=== PATIENT | female | born 1995 | race Caucasian/White ===

== ENCOUNTER 2023-02-11 19:28 | Emergency (ER) | payer SELFPAY ==
[~2023-02-11] VITALS: Ht 162.6 cm; Wt 55.0 kg
[~2023-02-11 19:28] MED LIST: MULTCAP45 PO
[2023-02-11 20:02] LABS: Basophils # (auto) 0 10 ^3/uL (0-0.2); Basophils % (auto) 0.3 % (0.0-2.0); Eosinophils # (auto) 0 10 ^3/uL (0-0.8); Hematocrit 36.4 % (36.0-46.0); Hemoglobin 12.4 g/dL (12.2-16.2); Lymphocytes # (auto) 1.3 10 ^3/uL (0.4-5.4); Lymphocytes % (auto) 10.9 % (10.0-50.0); Mean Corpuscular Hemoglobin 29.7 pg (28.0-32.0); Mean Corpuscular Hgb Conc. 33.9 g/dL (32.0-36.0); Mean Corpuscular Volume 87.4 fL (80.0-100.0); Monocytes # (auto) 0.5 10 ^3/uL (0-1.3); Monocytes % (auto) 4.2 % (0.0-12.0); Neutrophils % (auto) 84.6 % (37.0-80.0); Nucleated Red Blood Cells % 0.1 %; Red Blood Cells 4.16 10^6/uL (4.0-5.20); Red Cell Distribution Width 13.4 % (11.8-14.3); White Blood Cell 11.8 10^3/uL (4.4-10.8)
[2023-02-11] MEDS ORDERED: SODIUM CHLORIDE 0.9% 1,000 ML IV ONE (20:30)
[2023-02-11] MEDS ORDERED: LORazepam 2MG/ML-1ML VIAL IV ONE ×2 (20:30→23:45)
[2023-02-11 20:35] LABS: Albumin 3.5 g/dL (3.4-5.0); Calcium 8.1 mg/dL (8.5-10.1)
[2023-02-11 20:37] LABS: Acetaminophen < 2.0 ug/mL (10-30); Salicylate < 1.7 mg/dL (2.8-20.0)
[2023-02-11 20:38] LABS: BUN/Creatinine Ratio 19.7 (10.0-20.0); Bilirubin, Total 0.3 mg/dL (0.2-1.0); Total Protein 6.5 g/dL (6.4-8.2)
[2023-02-11] MEDS ORDERED: POTASSIUM EFFERVESENT TAB 25 MEQ PO ONE (23:00)
[2023-02-11] MEDS ORDERED: LACTATED RINGER'S 1,000 ML IV ONE (23:00)
[2023-02-12 02:00] VITALS: BP 115/78
[2023-02-12] MEDS ORDERED: ALPRAZolam 0.5 MG TAB PO ONE (02:00)
== END 2023-02-12 02:19 | disposition home or self-care (01) ==
LOC: EDBD 19:28 → EDUNIT# 19:28 → ER 19:28
DX: F11.23 Opioid dependence with withdrawal (principal); F41.9 Anxiety disorder, unspecified; E87.6 Hypokalemia; F12.10 Cannabis abuse, uncomplicated; F15.10 Other stimulant abuse, uncomplicated; R10.2 Pelvic and perineal pain
CPT/HCPCS: 36415; 80053; 80329; 84702; 85025; 93005; 96361; 96374; 96376; 99285; J2060; J7030

== ENCOUNTER 2025-04-21 15:08 | Emergency (ER) | payer OTHER ==
[~2025-04-21] VITALS: Ht 154.9 cm; Wt 57.0 kg
[2025-04-21 15:13] VITALS: BP 115/65; PULSE 105; RESP 16; TEMP 99; O2SAT 100
--- NOTE | 2025-04-21 15:33 | ED.PDOC ---
Back pain HPI HPI Comments 29-year-old female presents to the ER with a prior MHx of asthma: surgical history of left knee surgery and the chief complaint of body pain. Patient reports on having generalized swelling for one week after going to her detox center. Patient notes on having left arm soreness with chest pain the other night . LMP 03/20/2025. Chief Complaint: Body Pain Time Seen by MD: 15:30 Primary Care Provider: NONE Reviewed Notes: Nurses Notes, Medications, Allergies Allergies: Coded Allergies: NO KNOWN ALLERGIES (Unverified , 06/16/14) Home Meds Reported Medications Multiple Vitamin (Multivitamins) Cap, 1 CAP PO DAILY, #30 CAP 3 Refills 06/18/14 Information Source: Patient Mode of Arrival: Ambulatory Timing: Days Duration: Since onset Severity: Moderate Prehospital treatment: None Quality: Aching Onset: Spontaneous History of: None Associated signs and symptoms: None Past Medical History PAST MEDICAL HISTORY: Asthma Surgical History (Other): Left knee surgery FISHER HOOP NET History: No Pertinent FISHER HOOP NET History Family History Family History: Reviewed,noncontributory to illness, Unknown Social History Smoker: Unknown Alcohol: Unknown Drugs: Unknown Lives In: Home Constitutional: reports: others (Look at HPI); denies: chills, diaphoresis, fatigue, fever, malaise, sweats, weakness EENTM: denies: blurred vision, double vision, ear bleeding, ear discharge, ear drainage, ear pain, ear ringing, eye pain, eye redness, hearing loss, mouth pain, mouth swelling, nasal discharge, nose bleeding, nose congestion, nose pain, photophobia, tearing, throat pain, throat swelling, voice changes, others Respiratory: denies: cough, hemoptysis, orthopnea, SOB at rest, shortness of breath, SOB with excertion, stridor, wheezing, others Cardiovascular: denies: chest pain, dizzy spells, diaphoresis, Dyspnea on exertion, edema, irregular heart beat, left arm pain, lightheadedness, palpitations, PND, syncope, others Gastrointestinal: denies: abdomen distended, abdominal pain, blood streaked bowels, constipated, diarrhea, dysphagia, difficulty swallowing, hematemesis, melena, nausea, poor appetite, poor fluid intake, rectal bleeding, rectal pain, vomiting, others Genitourinary: denies: abnormal vagina bleeding, burning, dyspareunia, dysuria, flank pain, frequency, hematuria, incontinence, pain, , vagina discharge, urgency, others Neurological: denies: dizziness, fainting, headache, left sided numbness, left sided weakness, numbness, paresthesia, pre-existing deficit, right sided numbness, right sided weakness, seizure, speech problems, tingling, tremors, weakness, others Musculoskeletal: denies: back pain, gout, joint pain, joint swelling, muscle pain, muscle stiffness, neck pain, others Integumetry: denies: bruises, change in color, change in hair/nails, dryness, laceration, lesions, lumps, rash, wounds, others Allergic/Immunocompromised: denies: Difficulty Healing, Frequent Infections, Hives, Itching, others Hematologic/Lymphatic: denies: anemia, blood clots, easy bleeding, easy bruising, swollen glands, others Endocrine: denies: excessive hunger, excessive sweating, excessive thirst, excessive urination, flushing, intolerance to cold, intolerance to heat, une xplained weight gain, unexplained weight loss, others Psychiatric: denies: anxiety, bipolar disorder, depression, hopeless, panic disorder, schizophrenia, sleepless, suicidal, others All Other Systems: Reviewed and Negative Physical Exam General Appearance: No Apparent Distress, Normal HEENT: Normal ENT Inspection, Pharynx Normal, TMs Normal Neck: Full Range of Motion, Non-Tender, Normal, Normal Inspection Respiratory: Chest Non-Tender, Lungs Clear, No Accessory Muscle Use, No Respiratory Distress, Normal Breath Sounds Cardiovascular: No Edema, No JVD, No Murmur, No Gallop, Normal Peripheral Pul ses, Regular Rate/Rhythm Breast Exam: Deferred Gastrointestinal: No Organomegaly, Non Tender, No Pulsatile Mass, Normal Bowel Sounds, Soft Genitalia: Deferred Pelvic: Deferred Rectal: Deferred Extremities: No calf tenderness, Normal capillary refill, Normal inspection, Normal range of motion, Non-tender, No pedal edema Musculoskeletal : Apperance: Normal Neurologic: Alert, 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 Was a procedure done?: No Back Pain Differential Dx Differential Diagnosis: Other X-Ray, Labs, Meds, VS Vital Signs Date Time Temp Pulse Resp B/P (MAP) Pulse Ox O2 Delivery O2 Flow Rate FiO2 04/21/25 15:13 99.0 105 16 115/65 (82) 100 99.0 Lab Test 04/21/25 15:45 Range/Units Urine Color Light-orange Yellow Urine Clarity Turbid H Clear Urine pH 8.0 5.0-9.0 Urine Specific [place] 1.021 1.001-1.035 Urine Protein Negative Negative Urine Ketones Negative Negative Urine Blood Negative Negative /uL Urine Nitrite Negative Negative Urine Bilirubin Negative Negative Urine Urobilinogen 3 H Negative mg/dL Urine Leukocyte Esterase Negative Negative /uL Urine RBC 3 0 - 4 /hpf Urine Microscopic WBC 11 H 0-5 /HPF Urine Squamous Epithelial Cells Many <5 /hpf Urine Bacteria Few H None Seen /hpf Urine Hyaline Casts Few 0 - 2 /lpf Urine Mucus Few None Seen Urine Glucose Normal Normal mg/dL Urine Test Negative Negative X-Ray, Labs, Meds, VS Comment 29-year-old female presents to the ER with a prior MHx of asthma: surgical history of left knee surgery and the chief complaint of body pain. Patient arrives alert and oriented, ABC's intact, afebrile, vital signs stable, saturating well in room air Peripheral IV insertion+ labs were ordered. CBC was ordered to exclude anemia, blood loss, or infection. CMP was ordered to exclude electrolyte abnormalities, renal failure, dehydration, hyperglycemia and/or liver enzyme abnormalities. CRP Sed rate Troponin Urinalysis was ordered to rule out UTI or hematuria. Diagnostic imaging ordered by me and results interpreted by radiology : Labs in the ED showed (pertinent+ and then pertinent-) Eloped from ER Time of 1ST Reevaluation: 16:00 Reevaluation 1ST: Unchanged Patient Education/Counseling: Diagnosis, Treatment, Prognosis Family Education/Counseling: No Family Present SEPSIS Sepsis Screen Vital Signs Date Time Temp Pulse Resp B/P (MAP) Pulse Ox O2 Delivery O2 Flow Rate FiO2 04/21/25 15:13 99.0 105 16 115/65 (82) 100 99.0 Departure 1 Departure Time of Disposition: 16:48 Impression: Primary Impression: Eloped from emergency department Disposition: 07 LEFT AWOL/ELOPED Condition: Other Critical Care Note Critical Care Time?: No Stability Stability form required: No Heart Score Heart Score: Heart Score Response (Comments) Value History N/A 0 EKG N/A 0 Age N/A 0 Risk Factors N/A 0 Troponin N/A 0 Total 0 I personally scribed for NARDA BECKWITH NP ([email or web address]) on 04/21/25 at 15:33. Electronically submitted by Jose D Rodriguez ([email or web address]). NARDA BECKWITH NP Apr 21, 2025 15:33
[2025-04-21 16:25] LABS: Urine Protein, UAD Negative (Negative)
== END 2025-04-21 16:49 | disposition left against medical advice (07) ==
LOC: ER 15:13
DX: R07.89 Other chest pain (principal); J45.909 Unspecified asthma, uncomplicated; Z98.890 Other specified postprocedural states
CPT/HCPCS: 81001; 81025

== ENCOUNTER 2025-04-21 17:34 | Emergency (ER) | payer OTHER ==
[~2025-04-21] VITALS: Ht 170.2 cm; Wt 59.0 kg
[2025-04-21 17:38] VITALS: BP 121/90; PULSE 122; RESP 16; TEMP 98.3; O2SAT 98
== END 2025-04-21 17:46 | disposition left against medical advice (07) ==
LOC: ER 17:34
DX: M79.18 Myalgia, other site (principal); Z53.21 Procedure and treatment not carried out due to patient leaving prior to being seen by health care provider

== ENCOUNTER 2025-05-28 08:36 | Emergency (ER) | payer OTHER ==
[~2025-05-28] VITALS: Ht 152.4 cm; Wt 49.9 kg
[2025-05-28 08:39] VITALS: BP 156/101; PULSE 121; RESP 18; TEMP 99.3; O2SAT 96
--- NOTE | 2025-05-28 09:01 | ED.PDOC ---
Psychiatric HPI Comments This is a 29 year old female presenting to the ED with chief complaint of hallucinations. Patient reports that she had accidentally left her tampon in during her period for about 4 days. Patient relays that 2 days ago she had taken it out, however, she started to experience auditory hallucinations, not recognizing the voice she is hearing. Patient states that she also feels generally off at this time. Patient denies any SI, HI, fever, chills, or visual hallucinations. Chief Complaint: Hallucinations Time Seen by MD: 08:58 Primary Care Provider: NONE Reviewed Notes: Nurses Notes, Medications, Allergies Information Source: Patient Mode of Arrival: Ambulatory Severity: Able to Care for Self, Able to Control Self Severity of Pain: None Severity of Mental Status: Moderate Severity of Symptoms: Moderate Timing: Days Duration: Since onset Prehospital treatment: None Presents with: Unclear Thinking History of: Depression, Anxiety, Bipolar, Substance Abuse Associated signs and symptoms: Hallucinations Past Medical History PAST MEDICAL HISTORY: Anxiety, Asthma, Depression Past Medical History (Other): Bipolar Surgical History (Other): Left knee surgery HAMMERER TAB History: No Pertinent HAMMERER TAB History Family History Family History: Reviewed,noncontributory to illness, Unknown Social History Smoker: Cigarettes Alcohol: Occasionally Drugs: Marijuana Lives In: Home Constitutional: denies: chills, diaphoresis, fatigue, fever, malaise, sweats, weakness, others EENTM: denies: blurred vision, double vision, ear bleeding, ear discharge, ear drainage, ear pain, ear ringing, eye pain, eye redness, hearing loss, mouth pain, mouth swelling, nasal discharge, nose bleeding, nose congestion, nose pain, photophobia, tearing, throat pain, throat swelling, voice changes, others Respiratory: denies: cough, hemoptysis, orthopnea, SOB at rest, shortness of breath, SOB with excertion, stridor, wheezing, others Cardiovascular: denies: chest pain, dizzy spells, diaphoresis, Dyspnea on exertion, edema, irregular heart beat, left arm pain, lightheadedness, palpitations, PND, syncope, others Gastrointestinal: denies: abdomen distended, abdominal pain, blood streaked bowels, constipated, diarrhea, dysphagia, difficulty swallowing, hematemesis, melena, nausea, poor appetite, poor fluid intake, rectal bleeding, rectal pain, vomiting, others Genitourinary: denies: abnormal vagina bleeding, burning, dyspareunia, dysuria, flank pain, frequency, hematuria, incontinence, pain, , vagina discharge, urgency, others Neurological: denies: dizziness, fainting, headache, left sided numbness, left sided weakness, numbness, paresthesia, pre-existing deficit, right sided numbness, right sided weakness, seizure, speech problems, tingling, tremors, weakness, others Musculoskeletal: denies: back pain, gout, joint pain, joint swelling, muscle pain, muscle stiffness, neck pain, others Integumetry: denies: bruises, change in color, change in hair/nails, dryness, laceration, lesions, lumps, rash, wounds, others Allergic/Immunocompromised: denies: Difficulty Healing, Frequent Infections, Hives, Itching, others Hematologic/Lymphatic: denies: anemia, blood clots, easy bleeding, easy bruising, swollen glands, others Endocrine: denies: excessive hunger, excessive sweating, excessive thirst, excessive urination, flushing, intolerance to cold, intolerance to heat, unexplained weight gain, unexplained weight loss, others Psychiatric: reports: others (Auditory hallucinations); denies: anxiety, bipolar disorder, depression, hopeless, panic disorder, schizophrenia, sleepless, suicidal All Other Systems: Reviewed and Negative Physical Exam General Appearance: No Apparent Distress HEENT: Normal ENT Inspection, Pharynx Normal, TMs Normal Neck: Full Range of Motion, Non-Tender, Normal, Normal Inspection Respiratory: Chest Non-Tender, Lungs Clear, No Accessory Muscle Use, No Respiratory Distress, Normal Breath Sounds Cardiovascular: No Edema, No JVD, No Murmur, No Gallop, Normal Peripheral Pulses, Regular Rate/Rhythm Breast Exam: Deferred Gastrointestinal: No Organomegaly, Non Tender, No Pulsatile Mass, Normal Bowel Sounds, Soft Genitalia: Deferred Pelvic: Deferred Rectal: Deferred Extremities: No calf tenderness, Normal capillary refill, Normal inspection, Normal range of motion, Non-tender, No pedal edema Musculoskeletal : Apperance: Normal Neurologic: Alert, aix architect II-XII nml as Tested, No Motor Deficits, No Sensory Deficits, Other (The patient has a flat affect) Cerebellar Function: Normal Reflexes: Normal Skin: Dry, Normal Color, Warm Lymphatic: No Adenopathy Was a procedure done? Was a procedure done?: No Psych Differential Dx Psych. Differential Dx: Bipolar Disorder, Panic Disorder, Sleepless, Suicidal X-Ray, Labs, Meds, VS Vital Signs Date Time Temp Pulse Resp B/P (MAP) Pulse Ox O2 Delivery O2 Flow Rate FiO2 05/28/25 08:39 99.3 121 18 156/101 96 99.3 Lab Test 05/28/25 09:11 Range/Units Plasma/Serum Blood Alcohol 3.5 <10 mg/dL The patient's alcohol level is 3.5 We did attempt to continue to interviewed this patient but it seems that she got very anxious and wanted out the emergency department's. The patient initially stated that she was going to sit in the smoking area but is now left the department's Time of 1ST Reevaluation: 10:07 Reevaluation 1ST: The patient has eloped fr Patient Education/Counseling: Diagnosis, Treatment, Prognosis Family Education/Counseling: No Family Present Departure 1 Departure Time of Disposition: 10:07 Impression: Primary Impression: Anxiety disorder Qualified Codes: F41.9 - Anxiety disorder, unspecified Additional Impression: Hallucination Disposition: LEFT AWOL/ELOPED Condition: Fair Critical Care Note Critical Care Time?: No Stability Stability form required: No Heart Score Heart Score: Heart Score Response (Comments) Value History N/A 0 EKG N/A 0 Age N/A 0 Risk Factors N/A 0 Troponin N/A 0 Total 0 I personally scribed for JUSTICE HERNANDEZ MD ([email or web address]) on 05/28/25 at 09:00. Electronically submitted by Yasmani Salgado ([email or web address]). I personally scribed for JUSTICE HERNANDEZ MD ([email or web address]) on 05/28/25 at 09:01. Electronically submitted by Yasmani Salgado ([email or web address]). JUSTICE HERNANDEZ MD May 28, 2025 09:00
== END 2025-05-28 13:46 | disposition left against medical advice (07) ==
LOC: ER 08:36
DX: F41.9 Anxiety disorder, unspecified (principal); R44.3 Hallucinations, unspecified; J45.909 Unspecified asthma, uncomplicated; F17.210 Nicotine dependence, cigarettes, uncomplicated; Z79.899 Other long term (current) drug therapy
CPT/HCPCS: 36415; 80320

== ENCOUNTER 2025-08-23 19:13 | Emergency (ER) | payer OTHER ==
[~2025-08-23] VITALS: Ht 154.9 cm; Wt 51.8 kg
--- NOTE | 2025-08-23 20:07 | ED.PDOC ---
Eye-HPI HPI Comments PT HAS C/O SORE THROAT, CONGESTION, COUGH, AND NAUSEA X2 DAYS. DENIES DIF FICULTY BREATHING, SHORTNESS OF BREATH, CHEST PAIN, NAUSEA, VOMITING, FEVER, CHILLS, ABDOMINAL PAIN. Chief Complaint: Flu like Time Seen by MD: 19:21 Primary Care Provider: NONE Reviewed Notes: Nurses Notes, Medications, Allergies Allergies: Coded Allergies: Codeine (Verified Allergy, Unknown, 08/23/25) Watermelon Flavoring Agent (non-scr (Verified Allergy, Unknown, 05/28/25) Home Meds Active Scripts Promethazine-Dm (Promethazine Dm 6.25-15 mg/5Ml) 1 Keeley Ekeley, 5 ML PO TID PRN for 7 Days, #100 ML Prov:PORFIRIO RUSSELL [facility] 08/23/25 Azithromycin (Azithromycin) 250 Mg Tab, 250 MG PO DAILY MDD 500 for 5 Days, #6 TAB 0 Refills 2 TABLETS ORALLY ON DAY ONE, THEN 1 TABLET ORALLY DAILY FOR 4 DAYS Prov:PORFIRIO RUSSELL [facility] 08/23/25 Albuterol Sulfate (VENTOLIN MDI) 90 Mcg Ih, 90 MCG IN Q6HP PRN for 14 Days, #1 INHALER Prov:PORFIRIO RUSSELL [facility] 08/23/25 Reported Medications Multiple Vitamin (Multivitamins) Cap, 1 CAP PO DAILY, #30 CAP 3 Refills 06/18/14 Information Source: Patient Mode of Arrival: Ambulatory Past Medical History PAST MEDICAL HISTORY: Anxiety, Asthma, Depression 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 Pertinent LEVEL VIAL GRINDER History Family History Family History: Reviewed,noncontributory to illness, Unknown Social History Smoker: Cigarettes Alcohol: Occasionally Drugs: Marijuana Lives In: Home All Other Systems: Reviewed and Negative (see hpi) Physical Exam General Appearance: No Apparent Distress, Normal HEENT: Pharyngeal Erythema, TMs Normal Neck: Full Range of Motion, Non-Tender Respiratory: Chest Non-Tender, No Respiratory Distress, Rhonchi Cardiovascular: No Edema, No JVD, No Murmur, No Gallop, Normal Peripheral Pulses, Regular Rate/Rhythm Breast Exam: Deferred Gastrointestinal: No Organomegaly, Non Tender, No Pulsatile Mass, Normal Bowel Sounds, Soft Genitalia: Deferred Pelvic: Deferred Rectal: Deferred Extremities: Normal capillary refill, Normal inspection, Normal range of motion, Non-tender, No pedal edema Musculoskeletal : Apperance: Normal Neurologic: Alert, No Motor Deficits, Normal Affect, Normal Mood, No Sensory Deficits Cerebellar Function: Normal Reflexes: NOT DONE Skin: Dry, Normal Color, Warm Lymphatic: No Adenopathy Was a procedure done? Was a procedure done?: No EENT DIFF Eye: N/A Ear: Otitis Media, Pharyngitis Sore Throat: Juan's Angina, Peritonsillar Abscess, Peritonsillar Cellulitis, Streptococcal, Viral Pharyngitis, URI X-Ray, Labs, Meds, VS Vital Signs Date Time Temp Pulse Resp B/P (MAP) Pulse Ox O2 Delivery O2 Flow Rate FiO2 08/23/25 19:23 98.3 115 18 134/91 99 98.3 Time of 1ST Reevaluation: 19:21 Reevaluation 1ST: Unchanged Time of 2ND Reevaluation: 20:10 Reevaluation 2ND: Improved Patient Education/Counseling: Diagnosis, Treatment, Need For Follow Up Family Education/Counseling: No Family Present SEPSIS Sepsis Screen Date sepsis recognized/suspect: Aug 23, 2025 Time Sepsis recognized/suspect: 1923 Recent Procedure: No On Antibiotic Therapy: No Respiratory Rate >20: No Heart Rate >90: Yes Temp<36 C (96.8 F) or >38.3 C: No SBP <90 or MAP <65 mmHG: No New Acute Mental Status Change: No Is the patient on CPAP, BIPAP,: No Vital Signs Date Time Temp Pulse Resp B/P (MAP) Pulse Ox O2 Delivery O2 Flow Rate FiO2 08/23/25 19:23 98.3 115 18 134/91 99 98.3 Departure 1 Departure Time of Disposition: 20:12 Impression: Primary Impression: URI (upper respiratory infection) Qualified Codes: J06.9 - Acute upper respiratory infection, unspecified Disposition: HOME / SELF CARE / HOMELESS Condition: Stable e-Prescriptions Promethazine-Dm (Promethazine Dm 6.25-15 mg/5Ml) 1 Keeley Keeley 5 ML PO TID PRN for 7 Days, #100 ML Prov: PORFIRIO RUSSELL 08/23/25 Azithromycin (Azithromycin) 250 Mg Tab 250 MG PO DAILY MDD 500 for 5 Days, #6 TAB 0 Refills 2 TABLETS ORALLY ON DAY ONE, THEN 1 TABLET ORALLY DAILY FOR 4 DAYS Prov: PORFIRIO RUSSELL 08/23/25 Albuterol Sulfate (VENTOLIN MDI) 90 Mcg Ih 90 MCG IN Q6HP PRN for 14 Days, #1 INHALER Prov: PORFIRIO RUSSELL 08/23/25 Discharged With: Self Critical Care Note Critical Care Time?: No Stability Stability form required: PORFIRIO Kahn Aug 23, 2025 20:07
[2025-08-23] MEDS ORDERED: ALBUAER3 IN (20:14)
[2025-08-23] MEDS ORDERED: AZIT-43 PO (20:14)
[2025-08-23] MEDS ORDERED: PROM1SOL4 PO (20:14)
[2025-08-23 20:39] VITALS: BP 139/88; PULSE 99; RESP 16; TEMP 98.2; O2SAT 99
== END 2025-08-23 20:44 | disposition home or self-care (01) ==
LOC: ER 19:13
DX: J06.9 Acute upper respiratory infection, unspecified (principal); J45.909 Unspecified asthma, uncomplicated; F17.210 Nicotine dependence, cigarettes, uncomplicated; Z88.5 Allergy status to narcotic agent; Z91.018 Allergy to other foods; Z79.899 Other long term (current) drug therapy